=== PATIENT | female | born 1990 | race Caucasian/White ===

== ENCOUNTER → 2016-10-06 | Outpatient (CLI) | payer MEDICAID ==
--- NOTE | 2016-10-06 15:46 | US ---
EXAMINATION TYPE: US thyroid st tissue head/neck DATE OF EXAM: 10/06/2016 3:32 PM COMPARISON: NONE CLINICAL HISTORY: Enlarged Thyroid E04.9. Hashimotos GLAND SIZE: Right Lobe: 4.8 x 1.8 x 1.6 cm Overall Parenchyma: homogenous Left Lobe: 3.4 x 1.4 x 1.4 cm Overall Parenchyma: homogeneous Isthmus Thickness: 0.3 cm NODULES RIGHT: # of nodules measured on right: 0 LEFT: # of nodules measured on left: 0 ISTHMUS: # of nodules measured in the isthmus: 0 TECHNOLOGIST IMPRESSION: Multiple lymph nodes noted left neck, largest = 2.0cm. NO distinct nodule n oted at this time IMPRESSION: 1. Normal thyroid. 2. Lymphadenopathy is noted within the neck.
== END | disposition home or self-care (01) ==
LOC: RADUSWWP 15:16
PROVIDERS: ATTEND Obstetrics & Gynecology
DX: R59.9 Enlarged lymph nodes, unspecified (principal)
CPT/HCPCS: 76536